=== PATIENT | male | born 1940 | race Caucasian/White ===

== ENCOUNTER 2019-03-15 08:56 | Day surgery (SDC) | payer MEDICARE, OTHER ==
[2019-03-15] MEDS ORDERED: Sodium Chloride 0.9% 10 ML Syringe IV ONE (08:57)
[2019-03-15] MEDS ORDERED: Midazolam 1 MG/ML 2 ML SDV IV ONE (08:57)
[2019-03-15] MEDS ORDERED: Dexamethasone 4 MG/ML SDV IV ONE (08:57)
[2019-03-15] MEDS ORDERED: Phenylephrine 10% Ophth Soln 5 ML Bot EYELF PRN (09:00)
[2019-03-15] MEDS ORDERED: Ondansetron 4 MG/2 ML SDV IVPUSH PRN (09:00)
[2019-03-15] MEDS ORDERED: Phenylephrine 10% Ophth Soln 5 ML Bot EYELF ONE (09:00)
[2019-03-15] MEDS ORDERED: Cataract Ophth Solution EYELF ONE (09:00)
[2019-03-15] MEDS ORDERED: Sodium Chloride 0.9% 10 ML Syringe FLUSH PRN (09:00)
[2019-03-15] MEDS ORDERED: Moxifloxacin 0.5% Ophth Soln 3 ML Bottle EYELF ONE (09:00)
[2019-03-15] MEDS ORDERED: Acetaminophen 325 MG Tab PO PRN (09:00)
[2019-03-15] MEDS ORDERED: Timolol Maleate 0.5% Ophth Soln 5 ML Bottle EYELF ONE (09:00)
[2019-03-15] MEDS ORDERED: Proparacaine 0.5% Ophth Soln 15 ML Bottle EYELF ONE (09:00)
[2019-03-15] MEDS ORDERED: Povidone-Iodine 5% Sterile Ophth Soln 30 ML Bottle EYELF ONE ×2 (09:00→10:03)
[2019-03-15] MEDS ORDERED: Tetracaine HCl/PF 0.5% 4 ML Bottle EYELF ONE (10:02)
[2019-03-15] MEDS ORDERED: Lidocaine 1% 30 ML SDV ONE (10:02)
[2019-03-15] MEDS ORDERED: Diclofenac Sodium 0.1% Ophth Soln 5 ML Bottle EYELF ONE (10:03)
[2019-03-15] MEDS ORDERED: Chondroitin Sulfate/Hyaluronate Sodium Ophth Inj 0.75 ML Syringe EYELF ONE (10:03)
[2019-03-15] MEDS ORDERED: Apraclonidine 0.5% Ophth Soln 5 ML Bot EYELF ONE (10:03)
[2019-03-15] MEDS ORDERED: Balanced Salt Solution Ophth Irrig 500 ML Bottle IOCULAR ONE (10:03)
[2019-03-15] MEDS ORDERED: Dexamethasone/Neomycin/Polymyxin B Ophth Oint 3.5 GM Tube EYELF ONE (10:04)
[2019-03-15] MEDS ORDERED: Vancomycin 500 MG SDV EYELF ONE (10:04)
--- NOTE | 2019-03-15 15:11 | OR ---
DATE: 03/15/2019 PREOPERATIVE DIAGNOSIS: Visually significant mixed cataract, left eye. POSTOPERATIVE DIAGNOSIS: Visually significant mixed cataract, left eye. PROCEDURE: Extracapsular cataract extraction with intraocular lens implant, left eye. ANESTHESIA: Topical/local MAC. COMPLICATIONS: None. INDICATION: Mr. Morales was seen in the clinic with complaints of blurred vision. He has difficulty seeing his computer and he has noticed a progressive pack changer the last 2 years. I explained options, offered cataract surgery, and I explained risks including, but not limited to, infection, retinal detachment, loss of vision, and need for additional surgery amongst others. We discussed implant options. He has requested a toric implant. He voiced an understanding with respect to risks and wished to proceed. OPERATIVE DESCRIPTION: After informed consent was obtained and the risks, benefits, and alternatives were explained, the patient was brought to the operative suite and topical anesthesia was administered. The patient was then prepped and draped in the sterile fashion and attention was placed on the left eye. A sterile lid speculum was placed into the left eye to allow operative exposure. A full-thickness paracentesis was made in the temporal portion of the operative eye. Preservative-free lidocaine 0.1 mL was injected into the anterior chamber followed by viscoelastic. A full-thickness corneal incision was then made into the anterior chamber. A bent needle cystotome was used to create a small deacon in the anterior capsule. The capsulorrhexis forceps was then used to create a 360-degree curvilinear capsulorrhexis. The nucleus was then removed using a phacoemulsification handpiece and the remaining cortical material was then removed with irrigation and aspiration handpiece. Following removal of the cortical material, the capsular bag was then inspected and noted to be free of any holes or tears. Viscoelastic was then injected into the capsular bag and the intraocular lens was inserted into the capsular bag. The implant was oriented to correspond with preoperative corneal siegel made with the patient in the upright position. The viscoelastic material was then removed from both the anterior and posterior chambers and from behind the IOL. The lens and capsular bag were then reinspected. The IOL was well centered and the capsular bag intact. The wound and paracentesis sites were inspected and hydrated with balanced saline solution. Both were found to be self-sealing. The intraocular pressure was assessed digitally and found to be within normal range. A good red reflex was noted at the completion of the procedure. No complications occurred during the operation. At the completion of the procedure, Maxitrol, Voltaren, and Iopidine drops were placed into the operative eye. A sterile eye shield was placed over the operative eye and the patient was transported to the postoperative recovery area having tolerated the procedure well. Postoperative instructions were given along with a postoperative appointment. The patient was advised to call with any questions or concerns. [facility] /[id number]
== END 2019-03-15 11:12 | disposition home or self-care (01) ==
LOC: DL.SDS 08:56
PROVIDERS: ATTEND Ophthalmology
DX: H26.8 Other specified cataract (principal); E29.1 Testicular hypofunction; E78.00 Pure hypercholesterolemia, unspecified; Z79.899 Other long term (current) drug therapy; Z88.0 Allergy status to penicillin
CPT/HCPCS: 00142; 66984; A9270; J1100; J2001; J2250; J3370; V2787

== ENCOUNTER 2019-09-27 17:13 | Emergency (ER) | payer MEDICARE, OTHER ==
--- NOTE | 2019-09-27 18:58 | EDM.PDOC ---
Scribed by Migdalia Horn 09/27/19 [id number] for Gareth Osuna PA ED HPI GENERAL MEDICAL PROBLEM - General Chief Complaint: ENT Problem Stated Complaint: CAN'T SWALLOW Time Seen by Provider: 09/27/19 18:01 Source of Information: Reports: Patient, RN, RN Notes Reviewed History Limitations: Reports: No Limitations - History of Present Illness INITIAL COMMENTS - FREE TEXT/NARRATIVE: This 78 yo male patient was sent to the ED by his Telephone Assembler. 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 The patient reports his difficulties swallowing started about 2 weeks ago, but got much worse today. The patient reports that he feels like he has phlegm stuck in his throat. The patient reports he has been able to eat, but only able to eat small amounts at a time. The patient reports he had been on a bus trip to [place], [place]. When he got back, he saw his family physician was given a script for an antibiotic and cough medication. Onset: Today Duration: Day(s):, Constant, Getting Worse Location: Reports: Face (right eye), Neck (difficulties swalowing) Quality: Reports: Other Severity: Moderate Improves with: Reports: None Worsens with: Reports: None Context: Reports: Other Associated Symptoms: Reports: No Other Symptoms - Related Data Allergies Allergy/AdvReac Type Severity Reaction Status Date / Time Penicillins Allergy Rash Verified 09/27/19 17:37 Home Meds: Home Meds . [No Known Home Meds] 09/27/19 [History] Past Medical History HEENT History: Reports: Cataract Cardiovascular History: Reports: None Respiratory History: Reports: None Gastrointestinal History: Reports: None Genitourinary History: Reports: None Musculoskeletal History: Reports: None Neurological History: Reports: None Psychiatric History: Reports: None Endocrine/Metabolic History: Reports: None Hematologic History: Reports: None Immunologic History: Reports: None Oncologic (Cancer) History: Reports: None Dermatologic History: Reports: None - Infectious Disease History Infectious Disease History: Reports: Chicken Pox, Measles - Past Surgical History Head Surgeries/Procedures: Reports: None HEENT Surgical History: Reports: None, Cataract Surgery Other HEENT Surgeries/Procedures: CATARACT SURGERY LEFT EYE Cardiovascular Surgical History: Reports: None Respiratory Surgical History: Reports: None GI Surgical History: Reports: Colonoscopy, Hernia Repair/Other Endocrine Surgical History: Reports: None Neurological Surgical History: Reports: None Musculoskeletal Surgical History: Reports: Other (See Below) Other Musculoskeletal Surgeries/Procedures:: BACK SURG Oncologic Surgical History: Reports: None Social & Family History - Family History Family Medical History: Noncontributory - Tobacco Use Smoking Status *Q: Never Smoker Second Hand Smoke Exposure: No - Caffeine Use Caffeine Use: Reports: Coffee - Recreational Drug Use Recreational Drug Use: No ED ROS GENERAL - Review of Systems Review Of Systems: Comprehensive ROS is negative, except as noted in HPI. ED EXAM, NEURO - Physical Exam Exam: See Below Exam Limited By: No Limitations General Appearance: Alert, WD/WN, Moderate Distress Eye Exam: Right Eye: Other (The patient's right uppereyelid droops. The patient reports double vision when looking to the ), Bilateral Eye: PERRL Ears: Normal External Exam, Normal Canal, Hearing Grossly Normal, Normal TMs Nose: Normal Inspection, Normal Mucosa, No Blood Throat/Mouth: Other (Posterior pharynx demonstrates slight weakness to the right side) Head Exam: Atraumatic, Normocephalic Neck: Normal Inspection, Supple, Non-Tender, Full Range of Motion Respiratory/Chest: No Respiratory Distress, Lungs Clear, Normal Breath Sounds, No Accessory Muscle Use, Chest Non-Tender Cardiovascular: Normal Peripheral Pulses, Regular Rate, Rhythm, No Edema, No Gallop, No JVD, No Murmur, No Rub GI/Abdominal: Normal Bowel Sounds, Soft, Non-Tender, No Organomegaly, No Distention, No Abnormal Bruit, No Mass (Male) Exam: Deferred Rectal (Males) Exam: Deferred Neurological: Alert, Normal Mood/Affect, Normal Dorsiflexion, Normal Plantar Flexion, Normal Gait, Normal Reflexes, No Motor/Sensory Deficits, Oriented x 3 Back Exam: Normal Inspection, Full Range of Motion, NT Extremities: Normal Inspection, Normal Range of Motion, Non-Tender, No Pedal Edema, Normal Capillary Refill Psychiatric: Normal Affect, Normal Mood Skin Exam: Warm, Dry, Intact, Normal Color, No Rash Course - Vital Signs Last Recorded V/S: Last Vital Signs Temp 35.8 C 09/27/19 17:26 Pulse 72 09/27/19 17:26 Resp 16 09/27/19 17:26 BP 160/63 H 09/27/19 17:26 Pulse Ox 100 09/27/19 17:26 - Orders/Labs/Meds Orders: Active Orders 24 hr Category Date Time Status Cervical Spine wo Cont [CT] Urgent Exams 09/27/19 17:58 Ordered Head wo Cont [CT] Urgent Exams 09/27/19 17:58 Ordered Departure - Departure Time of Disposition: 19:07 Disposition: Home, Self-Care 01 Condition: Fair Clinical Impression: Facial nerve palsy - Discharge Information *PRESCRIPTION DRUG MONITORING PROGRAM REVIEWED*: Not Applicable *COPY OF PRESCRIPTION DRUG MONITORING REPORT IN PATIENT SONYA: Not Applicable Forms: ED Department Discharge Care Plan Goals: The patient was advised of the examination and CT results during the visit. The patient was encouraged to follow-up with his primary care facility for continued evaluation (MRI and swallow study) and treatment. The patient was encouraged to drink plenty of fluids with meals. If the patient has any additional symptoms or concerns, the patient should either return to the emergency department or visit his primary care facility. - My Orders Last 24 Hours: My Active Orders 09/27/19 17:58 Cervical Spine wo Cont [CT] Urgent Head wo Cont [CT] Urgent - Assessment/Plan Last 24 Hours: My Active Orders 09/27/19 17:58 Cervical Spine wo Cont [CT] Urgent Head wo Cont [CT] Urgent I have read and agree with the documentation that has been completed regarding this visit. By signing this record, I attest that the documentation was completed in my physical presence and is an accurate record of the encounter.
== END 2019-09-27 19:27 | disposition home or self-care (01) ==
LOC: DL.ED 17:13
DX: G51.0 Bell's palsy (principal); Z88.0 Allergy status to penicillin
CPT/HCPCS: 70450; 72125; 99284-25

== ENCOUNTER 2023-09-28 16:25 | Emergency (ER) | payer MEDICARE, OTHER | END 2023-09-28 18:24 | disposition home or self-care (01) | LOC: DL.ED 16:25 | DX: M79.662 Pain in left lower leg (principal); Z88.0 Allergy status to penicillin | CPT/HCPCS: 93971; 99283 ==

== ENCOUNTER 2025-07-27 12:59 | Emergency (ER) | payer MEDICARE, OTHER ==
[2025-07-27] MEDS ORDERED: Sodium Chloride 0.9% 10 ML Syringe FLUSH PRN (13:10)
[2025-07-27 13:17] LABS: BASOPHILS PERCENT AUTO 0.3 % (0.0-1.0); EOSINOPHILS PERCENT AUTO 0.9 % (1.0-3.0); LYMPHOCYTES PERCENT AUTO 18.9 % (20.5-50.1); MONOCYTES PERCENT AUTO 8.3 % (2-8); NEUTROPHILS PERCENT AUTO 71.6 % (42.2-75.2); PLATELET COUNT,PLT 129 10^3/uL (150-450); RED BLOOD CELL COUNT 5.23 10^6/uL (4.6-6.2); WHITE BLOOD CELL COUNT,WBC 7.6 10^3/uL (5.0-10.0)
[2025-07-27 13:39] LABS: A/G RATIO 1.3; ALANINE AMINOTRANSFERASE,ALT 28.0 U/L (16-63); ASPARTATE AMNIOTRANSFERASE,AST 21.0 U/L (15-37); BILIRUBIN TOTAL 0.6 mg/dL (0.2-1.0); BLOOD UREA NITROGEN,BUN 30.0 mg/dL (7-18); CARBON DIOXIDE,CO2 24.0 mmol/L (21-32); CHLORIDE,CL 106.0 mmol/L (98-107); CREATININE 1.16 mg/dL (0.70-1.30); EST CRCL DRUG DOSING (CG) 51.66 mL/min; ESTIMATED GFR 61.0 mL/min (>=60); GLUCOSE RANDOM 104.0 mg/dL (70-99); POTASSIUM,K 4.4 mmol/L (3.5-5.1); PROTEIN TOTAL,TP 7.0 g/dL (6.4-8.2); SODIUM,NA 139.0 mmol/L (136-145)
[2025-07-27 14:44] LABS: APPEARANCE,URINE CLEAR (CLEAR); GLUCOSE,URINE NEGATIVE (NEGATIVE); OCCULT BLOOD,URINE NEGATIVE (NEGATIVE)
== END 2025-07-27 17:25 | disposition home or self-care (01) ==
LOC: DL.ED 12:59
DX: R07.9 Chest pain, unspecified (principal); Z88.0 Allergy status to penicillin
CPT/HCPCS: 36415; 71045; 80053; 81003; 83735; 84484; 85025; 85379; 93005; 93010; 99284; 99285; A9270